=== PATIENT | female | born 1960 | race Caucasian/White ===

== ENCOUNTER 2017-05-09 05:54 | Inpatient (IN) ==
[2017-05-07 12:38] LABS: Basophils # 0.1 10*3/uL (0.0-0.2); Basophils % 0.8 % (0.0-0.8); Eosinophils # 0.3 10*3/uL (0.0-0.87); Hematocrit 43.4 VOL% (35.7-47.0); Immature Granulocytes % 0.3 %; Immature Granulocytes Absolute 0.02 #; Lymphocytes # 2.3 10*3/uL (1.4-4.0); Lymphocytes % 35.8 % (21.3-54.2); Mean Corpuscular HGB Conc 34.6 GM/DL (32-36); Mean Corpuscular Hemoglobin 32 PG (27-34); Mean Corpuscular Volume 92.9 FL (87-102); Mean Platelet Volume 10.7 FL (9.6-12.0); Monocytes # 0.6 10*3/uL (0.11-0.8); Monocytes % 9.1 % (1.7-12.7); Neutrophils # 3.3 10*3/uL (1.4-7.4); Platelet Count 249 T/CUMM (130-400); Red Blood Count 4.67 MC/CUMM (3.8-5.5); Red Cell Distribution Width 13.2 % (9.3-17.3); White Blood Count 6.5 T/CUMM (4-12)
[2017-05-07 12:49] LABS: PT Patient Result 10.7 SECS; Partial Thromboplastin Time 25.8 SECS (0-40)
[2017-05-07 13:01] LABS: Apearance,Urine CLEAR (Clear); Bacteria,Urine Occasional /HPF (Few); Bilirubin,Urine Negative (Negative); Blood, Urine Negative (Negative); Glucose,Urine (UA) Negative (Negative); Ketones,Urine Negative (Negative); Mucus,Urine Occasional /LPF (Occasional); Nitrite,Urine Negative (Negative); Protein,Urine Negative; RBC,Urine <1 /HPF (0-4); Squamous Epithelial Cell,Urine Occasional /HPF (0-10); Urine Color Yellow (Yellow); Urine Specific Gravity 1.008 (1.001-1.035); Urine Urobilinogen < 2.0 EU/DL (0.2-1.0)
[2017-05-07 13:22] LABS: % Iron Saturation 20.4 % (18-50); Alanine Aminotransferase 23 U/L (13-56); Albumin 3.9 G/DL (3.4-5.0); Alkaline Phosphatase 51 U/L (45-117); Aspartate Amino Transferase 20 U/L (0-37); Bilirubin,Total < 0.39 MG/DL (0.2-1.0); Blood Urea Nitrogen 10 MG/DL (7-18); Calcium 9.1 MG/DL (8.5-10.1); Cholesterol 187 MG/DL (50-200); Free T4 (Free Thyroxine) 1.07 NG/DL (0.76-1.46); Glucose 93 MG/DL (74-106); HDL Cholesterol 50 MG/DL (40-60); Iron 59 UG/DL (50-170); Iron Binding Capacity 289 UG/DL (250-450); Osmolality,Calculated 275.5 MOS/KG (273-304); Potassium 4.4 MMOL/L (3.5-5.1); Risk Ratio 3.74; Sodium 139 MMOL/L (136-145); Thyroid Stimulating Hormone 0.692 uIU/ml (0.358-3.74); Total Protein 7.8 G/DL (6.4-8.3); Triglycerides 110 MG/DL (2-150)
[2017-05-07 13:23] LABS: 25 Hydroxy Vitamin D Total 34.5 NG/ML
[2017-05-09] MEDS ORDERED: HYOSCYAMINE 0.125 MG TABLET ONE (05:56)
[2017-05-09] MEDS ORDERED: PANTOPRAZOLE 40 MG VIAL IV ONE ×2 (05:56→06:37)
[2017-05-09] MEDS ORDERED: SCOPOLAMINE 1.5 MG PATCH TRANSDERM ONE ×2 (05:56→06:14)
[2017-05-09] MEDS ORDERED: HEPARIN 5,000 UNIT/1 ML VIAL ONE (05:56)
[2017-05-09] MEDS ORDERED: ACETAMINOPHEN 1,000 MG/100 ML VIAL IV ONE ×2 (05:57→09:51)
[2017-05-09] MEDS ORDERED: TISSUE ADHESIVE 1 EACH APPLICATOR TOP ONE (06:19)
[2017-05-09] MEDS ORDERED: LIDOCAINE 1%/EPI INJ 20 ML VIAL ONE (06:19)
[2017-05-09] MEDS ORDERED: BUPIVACAINE 0.25% 50 ML VIAL ONE (06:19)
[2017-05-09] MEDS ORDERED: BUPIVACAINE LIPOSOMAL 20 ML/266 MG VIAL ONE (06:20)
[2017-05-09] MEDS: LACTATED RINGERS 1,000 ML IV SCH ×4 (06:32→19:39)
[2017-05-09] MEDS ORDERED: HYOSCYAMINE 0.125 MG TABLET SL ONE (06:37)
[2017-05-09] MEDS ORDERED: HEPARIN 5,000 UNIT/1 ML VIAL SUBCUT ONE (06:38)
[2017-05-09] MEDS ORDERED: DIAZEPAM 5 MG TABLET PO ONE (07:00)
[2017-05-09] MEDS ORDERED: FAMOTIDINE 20 MG TABLET PO ONE (07:00)
[2017-05-09] MEDS ORDERED: NEOSTIGMINE 10 MG/10 ML VIAL ONE (09:50)
[2017-05-09] MEDS ORDERED: fentaNYL 100 MCG/2 ML VIAL ONE (09:50)
[2017-05-09] MEDS ORDERED: DESFLURANE 1 UNIT/15 MINUTE INH ONE (09:50)
[2017-05-09] MEDS ORDERED: DEXAMETHASONE 10 MG/1 ML VIAL ONE (09:50)
[2017-05-09] MEDS ORDERED: GLYCOPYRROLATE 0.4 MG/2 ML VIAL ONE (09:50)
[2017-05-09] MEDS ORDERED: PROPOFOL 200 MG/20 ML VIAL IV ONE (09:50)
[2017-05-09] MEDS ORDERED: ONDANSETRON 4 MG/2 ML VIAL ONE (09:50)
[2017-05-09] MEDS ORDERED: MIDAZOLAM 2 MG/2 ML VIAL ONE (09:50)
[2017-05-09] MEDS ORDERED: ROCURONIUM 100 MG/10 ML VIAL IV ONE (09:51)
[2017-05-09] MEDS ORDERED: LACTATED RINGERS 1,000 ML IV ONE (09:51)
[2017-05-09] MEDS ORDERED: ONDANSETRON 4 MG/2 ML VIAL IV PRN (09:56)
[2017-05-09] MEDS ORDERED: HYDROmorphone 2 MG/1 ML VIAL IV PRN (09:56)
[2017-05-09] MEDS ORDERED: hydrALAZINE 20 MG/1 ML VIAL IV PRN (11:01)
[2017-05-09] MEDS ORDERED: HYDROcod/ACETAMIN 7.5-325 MG/15 ML UDCUP PO PRN (11:01)
[2017-05-09] MEDS ORDERED: MORPHINE 2 MG/1 ML SYRINGE IV PRN (11:01)
[2017-05-09] MEDS: ONDANSETRON 4 MG/2 ML VIAL IV PRN ×2 (15:39→21:32)
[2017-05-09] MEDS: ceFAZolin 2,000 MG in PREMIX 1 EACH IV SCH (17:11)
[2017-05-10] MEDS: ceFAZolin 2,000 MG in PREMIX 1 EACH IV SCH (01:26)
[2017-05-10] MEDS: LACTATED RINGERS 1,000 ML IV SCH ×2 (03:28→11:22)
[2017-05-10 06:28] LABS: Basophils % 0.1 % (0.0-0.8); Hematocrit 38.3 VOL% (35.7-47.0); Immature Granulocytes % 0.5 %; Immature Granulocytes Absolute 0.08 #; Lymphocytes # 1.6 10*3/uL (1.4-4.0); Lymphocytes % 10.2 % (21.3-54.2); Mean Corpuscular HGB Conc 33.9 GM/DL (32-36); Mean Corpuscular Hemoglobin 31 PG (27-34); Mean Corpuscular Volume 91.8 FL (87-102); Mean Platelet Volume 11.2 FL (9.6-12.0); Monocytes # 1.2 10*3/uL (0.11-0.8); Monocytes % 7.7 % (1.7-12.7); Neutrophils # 12.5 10*3/uL (1.4-7.4); Neutrophils % 81.5 % (38.7-73.9); Platelet Count 245 T/CUMM (130-400); Red Blood Count 4.17 MC/CUMM (3.8-5.5); Red Cell Distribution Width 13.2 % (9.3-17.3); White Blood Count 15.4 T/CUMM (4-12)
[2017-05-10 07:12] LABS: Calcium 8.4 MG/DL (8.5-10.1); Osmolality,Calculated 278.3 MOS/KG (273-304); Potassium 4.3 MMOL/L (3.5-5.1)
[2017-05-10] MEDS ORDERED: DEXTROSE 50% 25 GM/50 ML VIAL IV PRN (08:56)
[2017-05-10] MEDS ORDERED: GLUCAGON 1 MG VIAL IM PRN (08:56)
[2017-05-10] MEDS ORDERED: PANTOPRAZOLE 40 MG VIAL IV SCH (09:00)
[2017-05-10] MEDS: SIMETHICONE CHEW 80 MG TABLET PO SCH ×2 (11:22→15:52)
[2017-05-10] MEDS ORDERED: INSULIN REGULAR 100 UNIT/ML SUBCUT SCH (12:00)
[2017-05-10 14:56] LABS: 25-Hydroxy D3 7.1 ng/mL
[2017-05-10 16:27] VITALS: BP 115/69
[2017-05-11] MEDS ORDERED: ENOXAPARIN 40 MG/0.4 ML SYRINGE SUBCUT SCH (09:00)
== END 2017-05-10 16:20 | disposition home or self-care (01) | DRG 327 ==
LOC: INTOOBSV 05:54 → N.SDSINP 05:54 → N.3E 10:43
PROVIDERS: ADMIT Surgery; ATTEND Surgery